=== PATIENT | male | born 1950 | race Caucasian/White ===

== ENCOUNTER 2020-04-16 21:10 | Inpatient (IN) ==
[2020-04-16] MEDS ORDERED: Ondansetron 4 mg VIAL 2 MG/ML 2 ml VIAL IV ONE (21:16)
[2020-04-16] MEDS ORDERED: NS 0.9% 1000 ml BAG 1,000 ML IV ONE ×2 (21:16→22:34)
[2020-04-16] MEDS ORDERED: Pantoprazole VIAL 40 MG VIAL IV ONE (21:16)
[2020-04-16 21:42] LABS: ABS Eosinophils 0.4 10^3/ul (0-0.6); ABS Lymphocytes 2.8 10^3/ul (1.0-4.8); ABS Monocytes 0.6 10^3/ul (0-0.8); ABS Neutrophils 3.2 10^3/ul (1.5-7.7); Hematocrit 35 % (42-52); Hemoglobin 11.2 g/dL (14.0-18.0); Lymphocyte % 40.5 %; Mean Corpuscular HGB Conc 32 g/dL (31-36); Mean Corpuscular Hemoglobin 26 pg (27-31); Mean Corpuscular Volume 80 fL (80-94); Mean Platelet Volume 7.7 fL (7.4-10.4); Platelet Count 342 10^3/uL (150-450); Red Blood Count 4.35 10^6 /uL (4.18-5.48); Red Cell Distribution Width 18 % (10-15)
[2020-04-16 21:49] LABS: INR 1.28 (0.82-1.09)
[2020-04-16 21:59] LABS: Albumin 3.6 g/dL (3.2-5.2); Albumin/Globulin Ratio 1.2 (1-3); BUN/Creatinine Ratio 11.8 (8-20); Calcium 8.5 mg/dL (8.6-10.3); EGFR Non-African American 100.8 (>60); Globulin 3.1 g/dL (2-4); Potassium 3.6 mmol/L (3.5-5.0); Total Bilirubin 0.2 mg/dL (0.2-1.0); Total Protein 6.7 g/dL (6.4-8.9)
[2020-04-16] MEDS ORDERED: Iohexol 350 (CONTRAST) 500 ML MDV IV ONE (22:03)
[2020-04-16] MEDS ORDERED: Lorazepam PYXIS KEY ONE (23:42)
[2020-04-16] MEDS ORDERED: LORazepam 2 mg VIAL 1 ml IV PUSH ONE (23:42)
[2020-04-16] MEDS ORDERED: Lorazepam PYXIS KEY PRN (23:42)
[2020-04-16] MEDS ORDERED: LORazepam 2 mg VIAL 1 ml ONE (23:43)
[2020-04-17] MEDS ORDERED: Ondansetron 4 mg VIAL 2 MG/ML 2 ml VIAL IV PRN (00:02)
[2020-04-17] MEDS ORDERED: Haloperidol 5 mg/ml SDV IV/IM 5 MG/ML AMP IV SLOW PU ONE (00:10)
[2020-04-17] MEDS ORDERED: NS 0.9% 1000 ml BAG 1,000 ML IV SCH (00:15)
[2020-04-17] MEDS ORDERED: Albuterol HFA INHALER 8 gm MDI INH PRN (00:18)
[2020-04-17] MEDS ORDERED: levETIRAcetam 1000MG IVPREMIX 1,000 MG/100 ML BAG IVPB ONE (00:31)
[2020-04-17] MEDS ORDERED: Thiamine 100 MG/ML 2 ml VIAL (200 mg) IM ONE (00:31)
[2020-04-17 00:47] LABS: Urine Appearance Clear; Urine Bilirubin Negative (Negative); Urine Blood Negative (Negative); Urine Color Yellow; Urine Glucose Negative (Negative); Urine Ketones Negative (Negative); Urine Nitrite Negative (Negative); Urine Protein Negative (Negative); Urine Specific Gravity 1.039 (1.010-1.030); Urine Urobilinogen Negative (Negative)
[2020-04-17] MEDS ORDERED: LORazepam 2 mg VIAL 1 ml IV PUSH SCH (01:00)
[2020-04-17 01:06] LABS: Urine Benzodiazepine Screen None Detected (None Detect); Urine Cannabinoids Screen None Detected (None Detect); Urine Opiates Screen None Detected (None Detect)
[2020-04-17] MEDS ORDERED: Dexmedetomidine 1,000 MCG in NS 0.9% 250 ml 240 ML IV SCH (02:00)
[2020-04-17 04:46] LABS: ABS Lymphocytes 1.4 10^3/ul (1.0-4.8); ABS Monocytes 0.3 10^3/ul (0-0.8); Eosinophil % 0.8 %; Hematocrit 33 % (42-52); Hemoglobin 10.6 g/dL (14.0-18.0); Lymphocyte % 24.3 %; Mean Corpuscular HGB Conc 32 g/dL (31-36); Mean Corpuscular Hemoglobin 26 pg (27-31); Mean Corpuscular Volume 82 fL (80-94); Mean Platelet Volume 8.2 fL (7.4-10.4); Platelet Count 294 10^3/uL (150-450); Red Blood Count 4.06 10^6 /uL (4.18-5.48); Red Cell Distribution Width 18 % (10-15); White Blood Count 5.8 10^3/uL (3.5-10.8)
[2020-04-17 04:53] LABS: INR 1.16 (0.82-1.09)
[2020-04-17 05:02] LABS: BUN/Creatinine Ratio 10.4 (8-20); Calcium 8.2 mg/dL (8.6-10.3); EGFR African American 141.1 (>60); EGFR Non-African American 116.6 (>60); Potassium 4.5 mmol/L (3.5-5.0)
[2020-04-17] MEDS ORDERED: Multivitamins/Minerals TAB PO SCH (09:00)
[2020-04-17 09:16] LABS: Troponin I 0.01 ng/mL (<0.03)
[2020-04-17] MEDS ORDERED: Thiamine 100 MG/ML 2 ml VIAL 100 MG, Folic Acid 1 MG, Multiple Vitamin IV ADULT 10 ML i... IV ONE (09:52)
[2020-04-18] MEDS: Labetalol IV 5 MG/ML 20 ml VIAL IV PUSH PRN ×2 (04:20→05:41)
[2020-04-18 04:31] LABS: BUN/Creatinine Ratio 15.3 (8-20); Calcium 8.1 mg/dL (8.6-10.3); EGFR African American 107.2 (>60); EGFR Non-African American 88.6 (>60); Potassium 4.2 mmol/L (3.5-5.0)
[2020-04-18] MEDS ORDERED: hydrALAZINE 20 mg/ml 1 ML Vial IV IV SLOW PU ONE (05:00)
[2020-04-18] MEDS ORDERED: HYDROcodone/ACETAMIN 5/325 mg TAB PO PRN (08:53)
[2020-04-18] MEDS ORDERED: Fluticasone NASAL SPRAY 50MCG 16 gm SPRAY BTL INTRANASAL SCH (09:00)
[2020-04-18] MEDS ORDERED: Multivitamins/Minerals TAB PO SCH (09:00)
[2020-04-18 16:24] VITALS: BP 132/72
== END 2020-04-18 16:15 | disposition home or self-care (01) | DRG 84 ==
LOC: ED 21:10 → ICU 04-17 00:15
PROVIDERS: ADMIT Pediatrics; ATTEND Surgery Surgical Critical Care